=== PATIENT | male | born 1980 ===

== ENCOUNTER 2020-01-02 16:37 | Emergency (ER) | payer OTHER, BC ==
[2020-01-02] MEDS ORDERED: Erythromycin Base 0.5% Ophth Oint 3.5 GM Tube ONE (16:50)
--- NOTE | 2020-01-02 17:45 | EDM.PDOC ---
ED HPI GENERAL MEDICAL PROBLEM - General Chief Complaint: General Stated Complaint: FB IN EYE Time Seen by Provider: 01/02/20 16:55 Source of Information: Reports: Patient History Limitations: Reports: No Limitations - History of Present Illness INITIAL COMMENTS - FREE TEXT/NARRATIVE: pt arrives to ED with concerns for Foreign body sensation in his left eye with left upper eyelid swelling for the past 1-2 days. pt states sensation improves with eyes closed and after hot shower but worsens with eye movements, blinking. pt denies fever, chills, changes to vision. Left Eyelid Pain Score (Numeric/FACES): 5 Past Medical History - Past Health History Medical/Surgical History: Denies Medical/Surgical History Social & Family History - Family History Family Medical History: Noncontributory - Tobacco Use Smoking Status *Q: Never Smoker Second Hand Smoke Exposure: No - Caffeine Use Caffeine Use: Reports: Coffee - Recreational Drug Use Recreational Drug Use: No ED ROS GENERAL - Review of Systems Review Of Systems: Comprehensive ROS is negative, except as noted in HPI. ED EXAM, GENERAL - Physical Exam Exam: See Below General Appearance: Alert, WD/WN, No Apparent Distress Eye Exam: Left Eye: Foreign Body (no noted FB), Other (trace left upper eyelid edema with chalazion), Bilateral Eye: EOMI, PERRL Respiratory/Chest: No Respiratory Distress, No Accessory Muscle Use Cardiovascular: Normal Peripheral Pulses, Regular Rate, Rhythm Course - Vital Signs Last Recorded V/S: Last Vital Signs Temp 96.9 F 01/02/20 16:55 Pulse 81 01/02/20 16:55 Resp 18 01/02/20 16:55 BP 133/91 H 01/02/20 16:55 Pulse Ox 99 01/02/20 16:55 Departure - Departure Time of Disposition: 17:35 Disposition: Home, Self-Care 01 Clinical Impression: Chalazion left upper eyelid - Discharge Information *PRESCRIPTION DRUG MONITORING PROGRAM REVIEWED*: Not Applicable *COPY OF PRESCRIPTION DRUG MONITORING REPORT IN PATIENT OLEG: Not Applicable Instructions: Kristy Referrals: PCP,None [Primary Care Provider] - Forms: ED Department Discharge Additional Instructions: Discharge home. Apply erythromycin eye ointment, one ribbon of ointment, in left eye 4 times a day. Apply hot packs to left eye, once the rag is cool apply another hot pack. Follow up as needed with primary provider. Sepsis Event Note (ED) - Evaluation Sepsis Screening Result: No Definite Risk - Focused Exam Vital Signs: Vital Signs Temp Pulse Resp BP Pulse Ox 01/02/20 16:55 96.9 F 81 18 133/91 H 99 01/02/20 16:53 96.9 F 75 18 133/91 H 99 - Problem List & Annotations (1) Chalazion left upper eyelid SNOMED Code(s): 196543614796735 Code(s): H00.14 - CHALAZION LEFT UPPER EYELID Status: Acute Onset Date: ~12/31/19 - Problem List Review Problem List Initiated/Reviewed/Updated: Yes - Assessment/Plan Assessment:: assessment: chalazion left upper eyelid plan: warm compress to left eye as often as possible erythromycin eye ointment four times a day until chalazion resolves
== END 2020-01-02 17:30 | disposition home or self-care (01) ==
LOC: LB.ED 16:37
DX: H00.14 Chalazion left upper eyelid (principal)
CPT/HCPCS: 99283; A9270-GY